=== PATIENT | male | born 1970 | race Caucasian/White ===

== ENCOUNTER → 2019-10-23 | Outpatient (CLI) | payer OTHER ==
--- NOTE | 2019-10-23 14:00 | Diagnostic Imaging Report ---
INDICATION: Right leg claudication. FINDINGS: Segmental pressures were obtained. Ankle-brachial indices are abnormally low particularly on the right measuring 0.60. Ankle brachial index on the left is 0.89. IMPRESSION: Abnormal ankle brachial indices bilaterally, particularly on the right. Dictated by: Dictated on workstation # [id number]
== END ==
LOC: RAD 11:21
PROVIDERS: ATTEND Family Medicine
DX: I73.9 Peripheral vascular disease, unspecified (principal)
CPT/HCPCS: 93922

== ENCOUNTER → 2019-12-10 | Outpatient (CLI) | payer OTHER ==
[~2019-12-10] VITALS: Ht 177 cm; Wt 104.0 kg
[~2019-12-10] MED LIST: CATHETER FLUSH 10 ML SYR IV PRN; REGADENOSON 0.4 MG/5 ML SYR (LEXISCAN) IV ONE
[2019-12-10 13:40] VITALS: BP 147/90
--- NOTE | 2019-12-10 17:45 | STRESS TEST ---
DATE OF SERVICE: 12/10/2019 LEXISCAN MYOVIEW STRESS TEST REPORT REFERRING PHYSICIAN: Vivi Vaughn DO Baseline heart rate is 85. Baseline blood pressure 147/90. Baseline EKG is sinus rhythm with no ischemic changes. In summary, the patient was injected with 9.68 mCi of technetium-99 Myoview and the resting images were obtained. Then, the patient received 0.4 mg of Lexiscan followed by 30.8 mCi of technetium-99 Myoview. Throughout the test, there were no EKG changes. The resting and stress images were reviewed and compared in the short axis, horizontal long axis, and vertical long axis views. Review of the images showed extracardiac attenuation with fixed defect at the inferior wall. No significant ischemia was noted. SSS is 4, SDS 4, TID value 1.05. On the gated images, the left ventricle appeared to be normal size with normal contractility. Calculated ejection fraction 54%. CONCLUSION: 1. The patient tolerated Lexiscan well. 2. Diaphragmatic attenuation with no significant ischemia or infarction on SPECT images. Mild decreased uptake at the inferior wall with subtle reversibility. 3. Normal left ventricular size with normal contractility. Calculated ejection fraction 54%. Job ID: [id number] DocumentID: [id number] Dictated Date: 12/10/2019 15:25:55 Hydraulic Jack Adjuster Date: 12/10/2019 17:43:45 Dictated By: MADDIE AGUILERA MD
== END ==
LOC: CARD 11:56
PROVIDERS: ATTEND Internal Medicine Cardiovascular Disease
DX: I10 Essential (primary) hypertension (principal); I73.9 Peripheral vascular disease, unspecified; E78.2 Mixed hyperlipidemia; Z72.0 Tobacco use
CPT/HCPCS: 78452; 93017

== ENCOUNTER 2019-12-17 08:55 | Day surgery (SDC) | payer OTHER ==
[~2019-12-17] VITALS: Ht 177.2 cm; Wt 104.4 kg
[2019-12-17] VITALS (13 sets, daily range): BP systolic 105–177; BP diastolic 60–103
[2019-12-17] MEDS ORDERED: HEParin (CATH LAB) 2,000 ML IV ONE (09:16)
[2019-12-17] MEDS ORDERED: LIDOCAINE 1% INJ 20 ML 20 ML VIAL ONE ×2 (09:16→11:25)
[2019-12-17] MEDS ORDERED: NS IV 1000 ML 1,000 ML ONE (09:16)
[2019-12-17] MEDS ORDERED: NS IV 1000 ML 1,000 ML IV SCH (09:30)
[2019-12-17 09:50] LABS: BILIRUBIN,URINE NEGATIVE (NEGATIVE); CLARITY,URINE CLEAR; COLOR,URINE YELLOW; GLUCOSE, URINE (UA) NEGATIVE (NEGATIVE); KETONES,URINE NEGATIVE (NEGATIVE); LEUKOCYTE ESTERASE ,URINE NEGATIVE (NEGATIVE); NITRITE,URINE NEGATIVE (NEGATIVE); PROTEIN,URINE NEGATIVE (NEGATIVE)
[2019-12-17 09:52] LABS: HEMOGLOBIN 16.4 G/DL (13.3-17.7); MEAN PLATELET VOLUME 10.4 FL (7.4-10.4); RED CELL DISTRIBUTION WIDTH 14.9 % (10.0-14.5); WHITE BLOOD COUNT 9.4 10^3/uL (4.3-11.0)
[2019-12-17] MEDS ORDERED: ASPI-586 PO ×2 (09:54)
[2019-12-17 09:56] LABS: BACTERIA,URINE NEGATIVE /HPF; SQUAMOUS EPITHELIAL CELL,UR RARE /HPF; WBC,URINE RARE /HPF
--- NOTE | 2019-12-17 10:05 | Diagnostic Imaging Report ---
CHEST 1 VIEW, AP/PA ONLY Indication: Preprocedural workup for heart catheterization Comparison: None available. Findings: No focal airspace disease in the visualized lungs. Please note that the posterior lower lobes are poorly evaluated by portable radiography. No pleural effusion or pneumothorax. Normal cardiomediastinal silhouette. Impression: 1. No acute cardiopulmonary process by portable radiography. Dictated by: Dictated on workstation # [id number]
[2019-12-17 10:08] LABS: INR 0.9 (0.8-1.4); PROTHROMBIN TIME PATIENT 12.7 SEC (12.2-14.7)
[2019-12-17] MEDS ORDERED: MIDAZOLAM 5 MG/5 ML (VERSED) VIAL ONE ×2 (10:10→10:59)
[2019-12-17] MEDS ORDERED: fentaNYL INJECTION 100 MCG/2 ML AMP ONE ×2 (10:10→11:15)
[2019-12-17 10:17] LABS: ALANINE AMINOTRANSFERASE 18 U/L (0-55); ALBUMIN 4.4 GM/DL (3.2-4.5); ALKALINE PHOSPHATASE 86 U/L (40-136); BILIRUBIN,TOTAL 0.3 MG/DL (0.1-1.0); BUN/CREATININE RATIO 14; CALCIUM 9.2 MG/DL (8.5-10.1); CARBON DIOXIDE 27 MMOL/L (21-32); CHLORIDE 103 MMOL/L (98-107); CHOLESTEROL 267 MG/DL (< 200); CREATININE SERUM 1.03 MG/DL (0.60-1.30); GFR ESTIMATED > 60; GLUCOSE 103 MG/DL (70-105); HDL CHOLESTEROL 43 MG/DL (40-60); POTASSIUM 3.9 MMOL/L (3.6-5.0); SODIUM 138 MMOL/L (135-145); TOTAL PROTEIN 7.7 GM/DL (6.4-8.2); TRIGLYCERIDES 185 MG/DL (<150); VLDL CHOLESTEROL 37 MG/DL (5-40)
[2019-12-17] MEDS ORDERED: HEParin 1000 UNIT/ML (10ML VIAL) FOR BOLUS ONE (10:53)
[2019-12-17] MEDS ORDERED: NITRO DRIP 25000 MCG/D5W 250 ML IV ONE (11:02)
--- NOTE | 2019-12-17 12:50 | Cardiac Procedure Note-CS/ASA ---
Pre-Procedure Note Pre-Op Procedure Note H&P Reviewed The H&P was reviewed, patient examined and no changes noted. Date H&P Reviewed: Dec 17, 2019 Time H&P Reviewed: 10:00 Conscious Sedation Pre-Proced Time 10:00 ASA Score 3 For ASA 3 and 4: Consider anesthesia and medical clearance. Also, for patients with a history of failed moderate sedation consider anesthesia. Airway Lungs Heart ASA score ASA 1: a normal healthy patient ASA 2: a patient with a mild systemic disease (mid diabetes, controlled hypertension, obesity x ASA 3: a patient with a severe systemic disease that limits activity (angina, COPD, prior Myocardial infarction) ASA 4: a patient with an incapacitating disease that is a constant threat to life (CHF, renal failure) ASA 5: a moribund patient not expected to survive 24 hrs. (ruptured aneurysm) ASA 6: a declared brain- patient whose organs are being harvested. For emergent operations, add the letter E after the classification Mallampati Classification Grade 3 Sedation Plan Analgesia, Amnesia, Plan communicated to team members, Discussed options with patient/fam, Discussed risks with patient/fam The patient is an appropriate candidate to undergo the planned procedure, sedation, and anesthesia. The patient immediately re-assessed prior to indication. MADDIE AGUILERA MD Dec 17, 2019 12:50
--- NOTE | 2019-12-17 12:56 | Peripheral Report ---
Peripheral Report Physician (s)/Senior Marketing Engineer (s) Physician MADDIE AGUILERA MD Pre-Procedure Diagnosis Pre-Procedure Diagnosis: Peripheral arterial disease Post-Procedure Note Procedure Start Date: Dec 17, 2019 Name of Procedure: Abdominal aortogram Bilateral runoff Third order Additional imaging Findings/Procedure Note PROCEDURE NOTE: 49 years old gentleman with claudication, had abnormal ANTONY, scheduled for angiogram possible angioplasty. After explaining the procedure to the patient, all pros and cons were explained, all questions were answered. The patient signed the consent and then he was placed on the cardiac catheterization laboratory. The patient was placed on the cardiac catheterization laboratory. Groin was prepped SL fashion local anesthesia was used. Sheath placed in the left femoral artery, runoff to the left leg was done then the rim catheter was advanced and crossover straight catheter was placed in the right common iliac and runoff to the right leg was done at that point patient was given 5000 units of heparin, long 7 Martiniquais sheath was advanced, multiple attempts to cross the total occlusion at the mid SFA with multiple different catheters and wires has failed. I attempted to access the dorsalis pedis artery and the posterior tibial artery without success with the ultrasound assistance. At that point I perform final angiographic showing no complication and then retracted the sheath and exchanged and a short 7 Martiniquais sheath advanced pigtail catheter abdominal aorta and abdominal aortogram was done showing no complication. FINDINGS: 1. Abdominal aortogram has mild atherosclerotic disease, nonobstructive disease, no significant abnormality. 2. Right leg: Total occlusion of the right SFA, failed to cross the lesion with multiple attempts, attempt to access the dorsalis pedis and the posterior tibial artery has failed. 3. Left leg: Total occlusion of the left SFA at the long segment reconstructed at the popliteal artery. CONCLUSIONS: 1. Total occlusion of the right SFA, failed to cannulate the lesion with multiple attempts, failed attempt for pedal access. 2. Total occlusion of the left SFA at the long segment reconstructed at the left popliteal artery DISCUSSION AND RECOMMENDATIONS: Maximize medical therapy, attempt with right groin access and left pedal access, evaluate ultrasound of the right dorsalis pedis for possible pedal access to the left leg versus referral for vascular surgery evaluation Anesthesia Type: Conscious Sedation Estimated blood loss (mL): 55 ml Contrast Amount: 103 ml Total Radiation Dose: 2397 mGy Post-Procedure Diagnosis Post-operative diagnosis: Claudication Peripheral arterial disease Hypertension Hyperlipidemia MADDIE AGUILERA MD Dec 17, 2019 12:56
[2019-12-17] MEDS ORDERED: PATIENT MAY USE OWN MEDS, ALL PO SCH (13:00)
[2019-12-17] MEDS: NS IV 1000 ML 1,000 ML IV SCH ×2 (13:54→22:47)
[2019-12-17] MEDS ORDERED: ACETAMINOPHEN 325 MG TABLET PO PRN (17:00)
[2019-12-18] VITALS: BP 112/74
[2019-12-18 04:00] VITALS: BP 111/70
[2019-12-18 04:28] LABS: HEMOGLOBIN 14.7 G/DL (13.3-17.7); MEAN PLATELET VOLUME 10.5 FL (7.4-10.4); RED CELL DISTRIBUTION WIDTH 14.8 % (10.0-14.5)
[2019-12-18 04:49] LABS: BUN/CREATININE RATIO 14; CALCIUM 8.7 MG/DL (8.5-10.1); CARBON DIOXIDE 23 MMOL/L (21-32); CHLORIDE 107 MMOL/L (98-107); CREATININE SERUM 0.87 MG/DL (0.60-1.30); GFR ESTIMATED > 60; GLUCOSE 91 MG/DL (70-105); SODIUM 138 MMOL/L (135-145)
[2019-12-18 08:15] VITALS: BP 149/80
[2019-12-18] MEDS ORDERED: ATOR20TA66 PO ×2 (08:20)
[2019-12-18] MEDS ORDERED: CLOP75TA28 PO ×2 (08:20)
--- NOTE | 2019-12-18 08:21 | Discharge Inst-Post CATH ---
Discharge Inst-CATH/EP Problems Reviewed?: Yes Post Cardiac Cath/EP D/C Inst Follow Up/Plan Appointment with Dr. Nobles's office in 2-4 weeks <b>CARDIAC CATH/EP PROCEDURE DISCHARGE INSTRUCTIONS</b> ACTIVITY * Go Home directly and rest. * Limit activity of the leg (or wrist if it was used) for 7 days including aerobics, swimming, jogging, bicycling, etc. * Restrict stair-climbing for 7 days if possible, if not, climb up with your non-cath leg, then bring together on the same step. * Avoid lifting, pushing, pulling or excessive movement of the affected extremity for 7 days. * Customary sexual activity may be resumed after 2 days-use caution not to use a position that strains or causes pain to the affected extremity. * No driving for 24 hours. * NO SMOKING. * Avoid straining for bowel movements for 7 days. * Gentle walking on level ground is allowed. * Returning to work will depend on the type of procedure and the results. Your doctor will discuss this with you. CALL YOUR DOCTOR FOR ANY OF THE FOLLOWING: *If bleeding from the puncture site occurs- Apply gentle pressure to site with clean cloth and call your doctor or EMS. * If a knot or lump forms under the skin, increases in size, or causes pain. * If bruising appears to be worsening or moving further down your leg instead of disappearing. * Temperature above 101 F. CARE OF YOUR GROIN INCISION; * Bruising or purple discoloration of the skin near the puncture site is common. * You may shower only, no bathtub bathing for 5 days. Be careful to avoid slipping as your leg may feel stiff. * If a closure device was used on your femoral artery, please see the attached guide regarding care of the device and your leg. * Leave dressing on FOR 24 hours. CARE OF YOUR WRIST INCISION; * Bruising or purple discoloration of the skin near the puncture site is common. * You may shower. * DO NOT submerge wrist. * Leave dressing on FOR 24 hours. MADDIE NOBLES MD Dec 18, 2019 08:21
--- NOTE | 2019-12-18 08:22 | Cardiology Progress Note ---
Subjective Date Seen by Provider: Dec 18, 2019 Time Seen by Provider: 08:21 Subjective/Events-last exam Patient is laying down in bed, no new complaint. Groin is healing well Review of Systems General: No Chills, No Night Sweats, No Fatigue, No Malaise, No Appetite, No Other HEENT: No Head Aches, No Visual Changes, No Eye Pain, No Ear Pain, No Dysphasia, No Sinus Congestion, No Post Nasal Drip, No Sore Throat, No Other Pulmonary: No Dyspnea, No Cough, No Pleuritic Chest Pain, No Other Cardiovascular: No: Chest Pain, Palpitations, Orthopnea, Paroxysmal Noc. Dyspnea, Edema, Lt Headedness, Other Objective-Cardiology Exam Last Set of Vital Signs Vital Signs 12/18/19 08:15 Temp 36.4 Pulse 81 Resp 16 B/P (MAP) 149/80 (103) Pulse Ox 98 O2 Delivery Room Air Capillary Refill : Less Than 3 Seconds I&O Intake and Output 12/18/19 00:00 Intake Total 1520 ml Balance 1520 ml Intake Oral 520 ml IV Total 1000 ml # Voids 1 General: Alert, Oriented X3, Cooperative HEENT: Atraumatic, PERRLA Neck: Supple, No JVD, No Thyromegaly Lungs: Clear to Auscultation, Normal Air Movement Heart: Regular Rate, Normal S1, Normal S2, No Murmurs Abdomen: Normal Bowel Sounds, Soft, No Tenderness, No Hepatosplenomegaly, No Masses Extremities: No Clubbing, No Cyanosis, No Edema, Normal Pulses, No Tenderness/Swelling Skin: No Rashes, No Breakdown, No Significant Lesion Neuro: Normal Gait, Normal Speech, Strength at 5/5 X4 Ext, Normal Tone, Sensation Intact Psych/Mental Status: Mental Status NL, Mood NL Results Lab Laboratory Tests 12/17/19 09:40 12/18/19 04:03 A/P-Cardiology Admission Diagnosis Claudication Peripheral arterial disease Hyperlipidemia Tobaccoism Assessment/Plan Claudication, peripheral arterial disease, total occlusion of bilateral SFA, referred for evaluation with Dr. Jorge Corbin Hypertension, monitor blood pressure Hyperlipidemia started on statin Started on aspirin and Plavix Tobaccoism educated on smoking cessation MADDIE AGUILERA MD Dec 18, 2019 08:22
[2019-12-18] MEDS ORDERED: ASPIRIN E.C. 81 MG (ECOTRIN) TAB PO SCH (09:00)
[2019-12-18] MEDS ORDERED: CLOPIDOGREL 75 MG (PLAVIX) TABLET PO SCH (09:00)
== END 2019-12-18 09:32 | disposition home or self-care (01) ==
LOC: CATH 08:55 → ICU 13:14 → CSD 13:15 → CATH 12-18 09:32
PROVIDERS: ATTEND Internal Medicine Cardiovascular Disease
DX: I70.213 Atherosclerosis of native arteries of extremities with intermittent claudication, bilateral legs (principal); I70.92 Chronic total occlusion of artery of the extremities; I10 Essential (primary) hypertension; E78.2 Mixed hyperlipidemia; F17.210 Nicotine dependence, cigarettes, uncomplicated; Z79.82 Long term (current) use of aspirin; Z68.33 Body mass index [BMI] 33.0-33.9, adult; Z80.9 Family history of malignant neoplasm, unspecified
CPT/HCPCS: 36140; 36248; 36415; 71045; 80048; 80053; 80061; 81000; 85027; 85610; 85730; 87081

== ENCOUNTER → 2019-12-17 | Outpatient (CLI) | payer OTHER ==
[~2019-12-17] MED LIST changes: +ASPI-586 PO; +ASPIRIN E.C. 81 MG (ECOTRIN) TAB PO SCH; +ATOR20TA66 PO; -CATHETER FLUSH 10 ML SYR IV PRN; +CLOP75TA28 PO; +CLOPIDOGREL 75 MG (PLAVIX) TABLET PO SCH; -REGADENOSON 0.4 MG/5 ML SYR (LEXISCAN) IV ONE
== END ==
LOC: CARD 08:52
PROVIDERS: ATTEND Internal Medicine Cardiovascular Disease
DX: I10 Essential (primary) hypertension (principal); I73.9 Peripheral vascular disease, unspecified; E78.2 Mixed hyperlipidemia; Z72.0 Tobacco use
CPT/HCPCS: 93306

== ENCOUNTER 2022-05-05 10:30 | Emergency (ER) | payer BC ==
[~2022-05-05] VITALS: Ht 177 cm; Wt 108.0 kg
[~2022-05-05 10:30] MED LIST changes: -ASPIRIN E.C. 81 MG (ECOTRIN) TAB PO SCH; -CLOPIDOGREL 75 MG (PLAVIX) TABLET PO SCH
[2022-05-05 10:40] VITALS: BP 169/119
--- NOTE | 2022-05-05 11:03 | ED Integumentary General ---
General Chief Complaint: Skin/Wound Problems Stated Complaint: CYST L SIDE NECK,PAIN Nursing Triage Note: ARRIVED VIA AMB TO ROOM 03. STATES HE HAS HAD A SMALL LUMP ON THE RIGHT SIDE OF HIS NECK SINCE DECEMBER THAT HAS BEEN GETTING LARGER IN SIZE. THIS AM HE WOKE UP AND IT WAS QUITE A BIT LARGER. WHILE BEING IN THE SHOWER HE TRIED TO DRAIN IT AND NOW IT IS HURTING BAD. PT TOOK X4 IBUPROFEN AT 0900 WHICH HAS NOT HELPED WITH THE PAIN. Source: patient Exam Limitations: no limitations (KEITH ESPINOZA) History of Present Illness Date Seen by Provider: May 05, 2022 Time Seen by Provider: 11:01 Initial Comments Patient is a 51-year-old male who presents ED with abscess to his left lateral neck. Started around December with a small lump. This has increased over the past 48 hours with pain to the left ear with some redness around the cyst. Attempted to drain it while in the shower but was unsuccessful. Denies any fever, chills, nausea, vomiting, diarrhea. (KEITH ESPINOZA) Allergies and Home Medications Allergies Coded Allergies: No Allergy Information Available (Unverified , 12/10/19) Patient Home Medication List Home Medication List Reviewed: Yes (KEITH ESPINOZA) Aspirin (Aspir 81) 81 Mg Tablet.dr, 81 MG PO DAILY, (Reported) Entered as Reported by: KAREEM ABREU on 12/17/19 0954 Atorvastatin Calcium (Atorvastatin Calcium) 20 Mg Tablet, 20 MG PO HS Prescribed by: MADDIE AGUILERA on 12/18/19 0820 Cephalexin (Cephalexin) 500 Mg Tablet, 500 MG PO QID Prescribed by: CARL RODRIGUES on 05/05/22 1141 Clopidogrel Bisulfate (Clopidogrel) 75 Mg Tablet, 75 MG PO DAILY Prescribed by: MADDIE AGUILERA on 12/18/19 0820 Review of Systems Review of Systems Constitutional: No chills, No diaphoresis, No malaise, No weakness EENTM: No hearing loss, No ear pain, No blurred vision, No mouth swelling Respiratory: No cough, No dyspnea on exertion Cardiovascular: No chest pain Gastrointestinal: No abdominal pain, No diarrhea, No nausea, No vomiting Genitourinary: No decreased output, No discharge Musculoskeletal: No back pain, No joint pain Skin: change in color, other (abscess) Psychiatric/Neurological: Denies Anxiety, Denies Depressed (KEITH ESPINOZA) All Other Systems Reviewed Negative Unless Noted: Yes (KEITH ESPINOZA) Past Umsfnrt-Yjqjtx-Zpfuwe Hx Patient Social History Smoking Status: Former Smoker Use of E-Cig and/or Vaping dev: Yes Substance use?: No Alcohol Use?: Yes Alcohol Frequency: Rarely (KEITH ESPINOZA) Immunizations Up To Date Tetanus Booster (TDap): More than 5yrs Second COVID19 Vaccination Dm: UNKNOWN COVID19 Vaccine Stoner Hand: KIM (KEITH ESPINOZA) Past Medical History Respiratory: No Currently Using CPAP: No Currently Using BIPAP: No Cardiac: Yes (CLAUDICATION) High Cholesterol, Hypertension Neurological: No Genitourinary: No Cancer: No (KEITH ESPINOZA) Physical Exam Vital Signs Vital Signs - First Documented 05/05/22 10:40 Temp 36.6 Pulse 89 Resp 16 B/P (MAP) 169/119 (136) Pulse Ox 98 O2 Delivery Room Air (DESIREE ROJO MD) Vital Signs Capillary Refill : Less Than 3 Seconds (KEITH ESPINOZA) General Appearance: WD/WN, no apparent distress HEENT: PERRL/EOMI, normal ENT inspection, pharynx normal, scleral icterus (R) Cardiovascular: regular rate, rhythm, no edema, no gallop, no JVD Respiratory: chest non-tender, lungs clear, normal breath sounds, no respiratory distress, no accessory muscle use Gastrointestinal: normal bowel sounds, non tender, no organomegaly Back: normal inspection, no CVA tenderness, no vertebral tenderness Extremities: normal range of motion, non-tender, normal inspection, no pedal edema Neurologic/Psychiatric: porcelain slusher II-XII nml as tested, no motor/sensory deficits, alert, normal mood/affect, oriented x 3 Skin: other (2 x 2 centimeter function to the left lateral neck. Localized redness. Freely movable. No active drainage.) (KEITH ESPINOZA) Procedures/Interventions I&D : Blade Size: 11 I & D Procedure: betadine prep Packing/Drain: Idoform 10/18 Progress Mod amount of purulent drainage from a 2 x 2 centimeter abscess to left lateral neck. Appears to be more sebaceous content. Patient tolerated procedure well. (KEITH ESPINOZA) Progress/Results/Core Measures Results/Orders Vital Signs/I&O 05/05/22 10:40 Temp 36.6 Pulse 89 Resp 16 B/P (MAP) 169/119 (136) Pulse Ox 98 O2 Delivery Room Air (DESIREE ROJO MD) Blood Pressure Mean: 136 Departure Communication (PCP) Patient has a cyst to the left lateral neck which appears to be a sebaceous c yst. Likely infectious was localized redness. Incision and drainage with moderate mount of purulent sebaceous content. Iodoform packing was placed. Remove in 48 to 72 hours. May return back to ED or remove at home if not comfortable. Discussed discharging with Keflex. Anti-inflammatories at pain. Provided general surgery follow-up as this may continue to worsen or may need more of a excisional incision for removal. Attempted to remove the sac during procedure. patient Tolerated procedure well. (KEITH ESPINOZA) Impression Primary Impression: Abscess Disposition: 01 HOME, SELF-CARE Condition: Stable Departure-Patient Inst. Decision time for Depature: 11:40 (KEITH ESPINOZA) Referrals: MOISES CRAIG JACQUELINE S DO (PCP/Family) Primary Care Physician Patient Instructions: Skin Abscess Scripts Cephalexin (Cephalexin) 500 Mg Tablet 500 MG PO QID for 7 Days, #28 TAB Prov: KEITH ESPINOZA 05/05/22 ATTENDING PHYSICIAN NOTE: I was physically present as attending physician in the emergency department during the care of this patient, but I was not directly involved in the decision making or delivery of care for this patient. (DESIREE ROJO MD) KEITH ESPINOZA May 05, 2022 11:03 DESIREE ROJO MD May 05, 2022 20:03
[2022-05-05] MEDS ORDERED: CEPH500T PO (11:41)
== END 2022-05-05 11:44 | disposition home or self-care (01) ==
LOC: EDUNIT# 10:30 → ER 10:32
DX: L02.11 Cutaneous abscess of neck (principal); Z87.891 Personal history of nicotine dependence
CPT/HCPCS: 10060